=== PATIENT | female | born 1975 | race Caucasian/White ===

== ENCOUNTER 2025-01-18 19:52 | Emergency (ER) | payer OTHER ==
[~2025-01-18] VITALS: Ht 165.1 cm; Wt 84.0 kg
[2025-01-18 19:55] VITALS: BP 138/74; PULSE 110; RESP 18; TEMP 36.7; O2SAT 100
[2025-01-18 20:47] LABS: BASOPHILS % 0.4 % (0.0-2.0); EOSINOPHILS % 1.2 % (0.0-5.0); HEMATOCRIT. 42.3 % (36.0-48.0); HEMOGLOBIN. 14.3 g/dL (12.0-16.0); LYMPHOCYTES % 27.3 % (20.0-50.0); MEAN CORPUSCULAR HEMOGLOBIN 30.1 pg (28.0-32.0); MEAN CORPUSCULAR HGB CONC 33.8 g/dL (31.0-37.0); MEAN CORPUSCULAR VOLUME 89.3 fL (81.0-99.0); MEAN PLATELET VOLUME 8.3 fl (7.4-10.4); MONOCYTES % 4.8 % (2.0-8.0); NEUTROPHILS % 66.3 % (40.0-76.0); PLATELET 316 x1000/uL (130-400); RED BLOOD CELL COUNT 4.74 mill/uL (4.2-5.4); RED CELL DISTRIBUTION WIDTH 13.5 % (11.6-14.6); WHITE BLOOD COUNT 11.4 x1000/uL (4.5-11.0)
[2025-01-18 20:57] LABS: CHLORIDE 101 mEq/L (98-107); POTASSIUM 4.1 mEq/L (3.5-5.1); SODIUM 139 mEq/L (136-145)
[2025-01-18 20:58] LABS: CALCIUM 9.6 mg/dL (8.7-10.4); CARBON DIOXIDE 27 mEq/L (21-32)
[2025-01-18 21:03] LABS: CREATININE 0.8 mg/dL (0.6-1.0); GLUCOSE 298 mg/dL (70-105); UREA NITROGEN BLOOD 11 mg/dL (9-23)
[2025-01-18 21:14] LABS: HCG SCREEN NEGATIVE
[2025-01-19] MEDS: ACETAMINOPHEN 325MG TABLET PO ONE (02:00)
[2025-01-19] MEDS: ONDANSETRON HCL 4MG TABLET PO ONE (02:00)
[2025-01-19] MEDS ORDERED: ONDA4TAB50 MT (03:14)
== END 2025-01-19 03:34 | disposition home or self-care (01) ==
LOC: ER 19:52
DX: R11.10 Vomiting, unspecified (principal); E11.9 Type 2 diabetes mellitus without complications; Z79.85 Long-term (current) use of injectable non-insulin antidiabetic drugs; Z88.0 Allergy status to penicillin
CPT/HCPCS: 99283; 80048; 84703; 83690; 85025; 36415; Q0162